=== PATIENT | female | born 1965 | race Hispanic/Latino ===

== ENCOUNTER 2017-06-10 21:18 | Emergency (ER) | payer BC ==
[2017-06-10 22:42] LABS: APPEARANCE,URINE Clear (CLEAR); BILIRUBIN,URINE Negative (NEGATIVE); COLOR,URINE Yellow (YELLOW); GLUCOSE, URINE (UA) Negative (NEGATIVE); KETONES,URINE Trace mg/dL (NEGATIVE); LEUKOCYTE ESTERASE ,URINE Trace (NEGATIVE); NITRATE,URINE Negative (NEGATIVE); OCCULT BLOOD,URINE Negative (NEGATIVE); PH,URINE 5.5 (5.0-8.0); PROTEIN,URINE Negative (NEGATIVE)
[2017-06-10 23:04] LABS: BACTERIA,URINE Few /HPF (None Seen); MUCUS,URINE Moderate LPF (None Seen); RBC,URINE 0-1 /HPF (0-1)
[2017-06-10] MEDS ORDERED: DICYCLOMINE HCL 20 MG TAB ONE (23:16)
[2017-06-10] MEDS ORDERED: KETOROLAC TROMETHAMINE 30MG/ML ONE (23:16)
[2017-06-10] MEDS ORDERED: LACTULOSE 20 GM/30 ML UDCUP ONE (23:39)
[2017-06-11 00:08] LABS: BASOPHILS % (AUTO) 0.6 % (0.0-5.0); EOSINOPHILS % (AUTO) 3.1 % (0.0-8.0); HEMATOCRIT 42.2 % (36-48); LYMPHOCYTES % (AUTO) 35.6 % (21.0-51.0); MEAN CORPUSCULAR HEMOGLOBIN 29.9 pg (27.0-33.0); MEAN CORPUSCULAR HGB CONC 34.9 g/dL (32.0-36.0); MEAN CORPUSCULAR VOLUME 85.7 fL (79-99); MONOCYTES % (AUTO) 8.3 % (3.0-13.0); NEUTROPHILS % (AUTO) 52.4 % (40.0-77.0); PLATELET COUNT (AUTO) 201 K/uL (130-400); RED BLOOD CELL COUNT(AUTO) 4.93 MIL/uL (4.00-5.50); RED CELL DISTRIBUTION WIDTH 13.8 % (11.0-15.5); WHITE BLOOD COUNT (AUTO) 7.3 K/uL (4.8-10.8)
[2017-06-11 00:44] LABS: CREATININE 0.9 mg/dL (0.5-1.5); POTASSIUM 3.4 mmol/L (3.5-5.1)
[2017-06-11 00:48] LABS: ALBUMIN 3.8 g/dL (3.5-5.0); BILIRUBIN,DIRECT 0.1 mg/dL (0.0-0.3); BILIRUBIN,TOTAL 0.6 mg/dL (0.2-1.0)
== END 2017-06-11 01:20 | disposition home or self-care (01) ==
LOC: EDH 21:18
DX: E11.43 Type 2 diabetes mellitus with diabetic autonomic (poly)neuropathy (principal); K31.84 Gastroparesis; K42.9 Umbilical hernia without obstruction or gangrene
CPT/HCPCS: 36415; 74021; 80048; 80076; 81001; 83690; 85025; 96374; 99285; J1885

== ENCOUNTER 2017-06-20 14:36 | Inpatient (IN) | payer BC ==
[~2017-06-20] VITALS: Ht 160 cm; Wt 72.1 kg
[2017-06-20 15:42] LABS: BASOPHILS % (AUTO) 0.4 % (0.0-5.0); EOSINOPHILS % (AUTO) 1.5 % (0.0-8.0); HEMATOCRIT 40.9 % (36-48); LYMPHOCYTES % (AUTO) 29.3 % (21.0-51.0); MEAN CORPUSCULAR HEMOGLOBIN 29.7 pg (27.0-33.0); MEAN CORPUSCULAR HGB CONC 34.6 g/dL (32.0-36.0); MEAN CORPUSCULAR VOLUME 85.8 fL (79-99); MONOCYTES % (AUTO) 8.1 % (3.0-13.0); NEUTROPHILS % (AUTO) 60.7 % (40.0-77.0); PLATELET COUNT (AUTO) 202 K/uL (130-400); RED BLOOD CELL COUNT(AUTO) 4.77 MIL/uL (4.00-5.50); RED CELL DISTRIBUTION WIDTH 13.4 % (11.0-15.5); WHITE BLOOD COUNT (AUTO) 6.7 K/uL (4.8-10.8)
[2017-06-20 15:50] LABS: CREATININE 0.8 mg/dL (0.5-1.5); POTASSIUM 3.6 mmol/L (3.5-5.1)
[2017-06-20 15:54] LABS: ALBUMIN 3.7 g/dL (3.5-5.0); BILIRUBIN,DIRECT 0.2 mg/dL (0.0-0.3); BILIRUBIN,TOTAL 0.6 mg/dL (0.2-1.0); TOTAL PROTEIN, SERUM 7.6 g/dL (6.0-8.3)
[2017-06-20 15:55] LABS: APPEARANCE,URINE Cloudy (CLEAR); BILIRUBIN,URINE Negative (NEGATIVE); COLOR,URINE Yellow (YELLOW); GLUCOSE, URINE (UA) Negative (NEGATIVE); KETONES,URINE Negative (NEGATIVE); LEUKOCYTE ESTERASE ,URINE Small (NEGATIVE); NITRATE,URINE Negative (NEGATIVE); OCCULT BLOOD,URINE Negative (NEGATIVE); PH,URINE 5.5 (5.0-8.0); PROTEIN,URINE Negative (NEGATIVE)
[2017-06-20 16:22] LABS: BACTERIA,URINE Few /HPF (None Seen); RBC,URINE None Seen /HPF (0-1)
[2017-06-20 16:23] LABS: MUCUS,URINE Many LPF (None Seen); SQUAMOUS EPITHELIAL CELL,UR 30-50 /LPF (0-2)
[2017-06-20 17:04] LABS: APPEARANCE,URINE Clear (CLEAR); BILIRUBIN,URINE Negative (NEGATIVE); COLOR,URINE Yellow (YELLOW); GLUCOSE, URINE (UA) Negative (NEGATIVE); KETONES,URINE Negative (NEGATIVE); LEUKOCYTE ESTERASE ,URINE Negative (NEGATIVE); NITRATE,URINE Negative (NEGATIVE); OCCULT BLOOD,URINE Negative (NEGATIVE); PH,URINE 6.5 (5.0-8.0); PROTEIN,URINE Negative (NEGATIVE)
[2017-06-20] MEDS ORDERED: DICYCLOMINE HCL 10 MG/ML 2ML AMP IM ONE (17:31)
[2017-06-20] MEDS ORDERED: KETOROLAC TROMETHAMINE 30MG/ML ONE (17:31)
[2017-06-20] MEDS ORDERED: SODIUM CHLORIDE 0.9% 1000ML 1,000 ML IV ONE (18:22)
[2017-06-20 18:55] VITALS: BP 112/70
[2017-06-20] MEDS ORDERED: KETOROLAC TROMETHAMINE 15MG/ML ONE (22:41)
[2017-06-20] MEDS: KETOROLAC TROMETHAMINE 15MG/ML IV SCH (22:45)
[2017-06-20 23:43] VITALS: BP 110/78
[2017-06-21] VITALS (22 sets, daily range): BP systolic 101–136; BP diastolic 60–83
[2017-06-21] MEDS ORDERED: SODIUM CHLORIDE 0.9% 1000ML 1,000 ML IV SCH ×2 (00:59→10:00)
[2017-06-21] MEDS ORDERED: ONDANSETRON HCL 4 MG/2 ML VIAL IVP PRN (01:00)
[2017-06-21] MEDS ORDERED: GLUCAGON 1MG KIT 1 MG ML IM PRN (01:00)
[2017-06-21] MEDS ORDERED: MORPHINE SULFATE 4 MG/1ML SYG IVP PRN ×2 (01:00→09:00)
[2017-06-21] MEDS ORDERED: DEXTROSE 50%-WATER 50 ML DISP.SYRIN IV PRN (01:00)
[2017-06-21] MEDS ORDERED: ACETAMINOPHEN 325 MG TAB PO PRN ×3 (01:00→09:00)
[2017-06-21] MEDS ORDERED: MORPHINE SULFATE 2 MG/ML 1ML SYG IVP PRN (01:00)
[2017-06-21] MEDS ORDERED: HYDRALAZINE HCL 20 MG/ML VIAL IV PRN ×2 (01:00→09:00)
[2017-06-21] MEDS: KETOROLAC TROMETHAMINE 15MG/ML IV SCH ×2 (01:09→09:39)
[2017-06-21 03:44] LABS: BASOPHILS % (AUTO) 0.5 % (0.0-5.0); EOSINOPHILS % (AUTO) 3.1 % (0.0-8.0); HEMATOCRIT 37.7 % (36-48); LYMPHOCYTES % (AUTO) 35.8 % (21.0-51.0); MEAN CORPUSCULAR HEMOGLOBIN 29.8 pg (27.0-33.0); MEAN CORPUSCULAR HGB CONC 34.9 g/dL (32.0-36.0); MEAN CORPUSCULAR VOLUME 85.5 fL (79-99); MONOCYTES % (AUTO) 9.2 % (3.0-13.0); NEUTROPHILS % (AUTO) 51.4 % (40.0-77.0); NUCLEATED RED BLOOD CELLS 0.1 % (0.0-0.19); PLATELET COUNT (AUTO) 171 K/uL (130-400); RED BLOOD CELL COUNT(AUTO) 4.41 MIL/uL (4.00-5.50); RED CELL DISTRIBUTION WIDTH 13.8 % (11.0-15.5)
[2017-06-21 04:23] LABS: CREATININE 0.7 mg/dL (0.5-1.5); POTASSIUM 3.3 mmol/L (3.5-5.1)
[2017-06-21] MEDS: INSULIN HUMULIN R 100 UNIT/ML 3ML SQ SCH ×4 (06:04→21:00)
[2017-06-21] MEDS ORDERED: NITROGLYCERIN 0.4 MG SL TAB SL PRN (09:00)
[2017-06-21] MEDS ORDERED: MAG HYDROX/AL HYDROX/SIMETH ES 30 ML SUSP UDCUP PO PRN (09:00)
[2017-06-21] MEDS ORDERED: LIDOCAINE PF 2% 5ML ABBOJECT ONE (11:43)
[2017-06-21] MEDS ORDERED: ONDANSETRON HCL 4 MG/2 ML VIAL ONE (11:43)
[2017-06-21] MEDS ORDERED: DEXAMETHASONE SOD PHOSPHATE 10MG/ML 1ML VIAL ONE (11:43)
[2017-06-21] MEDS ORDERED: GLYCOPYRROLATE 0.2 MG/ML 5 ML VIAL ONE (11:43)
[2017-06-21] MEDS ORDERED: NEOSTIGMINE METHYLSULFATE 1MG/ML IV ONE (11:44)
[2017-06-21] MEDS ORDERED: PROPOFOL 10 MG/ML 20ML VIAL IV ONE ×2 (11:44→12:18)
[2017-06-21] MEDS ORDERED: SUCCINYLCHOLINE 200MG/10ML SYR ONE (11:44)
[2017-06-21] MEDS ORDERED: MIDAZOLAM HCL 1 MG/ML 2ML VIAL ONE (11:44)
[2017-06-21] MEDS ORDERED: FENTANYL CITRATE PF 50 MCG/1 ML 2ML VIAL ONE (11:45)
[2017-06-21] MEDS: FAMOTIDINE/PF 20 MG/2 ML VIAL IV SCH ×2 (17:47→21:05)
[2017-06-21] MEDS: PROCALAMINE IV SOLUTION 1,000 ML IV SCH (17:49)
[2017-06-22] VITALS: BP 116/75
[2017-06-22 03:56] LABS: BASOPHILS % (AUTO) 0.2 % (0.0-5.0); EOSINOPHILS % (AUTO) 0.1 % (0.0-8.0); HEMATOCRIT 37.7 % (36-48); MEAN CORPUSCULAR HEMOGLOBIN 30.1 pg (27.0-33.0); MEAN CORPUSCULAR HGB CONC 35.7 g/dL (32.0-36.0); MEAN CORPUSCULAR VOLUME 84.3 fL (79-99); MONOCYTES % (AUTO) 5.4 % (3.0-13.0); NEUTROPHILS % (AUTO) 78.3 % (40.0-77.0); NUCLEATED RED BLOOD CELLS 0.1 % (0.0-0.19); PLATELET COUNT (AUTO) 186 K/uL (130-400); RED BLOOD CELL COUNT(AUTO) 4.48 MIL/uL (4.00-5.50); RED CELL DISTRIBUTION WIDTH 13.6 % (11.0-15.5); WHITE BLOOD COUNT (AUTO) 8.8 K/uL (4.8-10.8)
[2017-06-22 04:00] VITALS: BP 102/69
[2017-06-22 04:21] LABS: BILIRUBIN,TOTAL 0.5 mg/dL (0.2-1.0); CREATININE 0.7 mg/dL (0.5-1.5); MAGNESIUM 1.9 mg/dL (1.80-2.40); PHOSPHORUS 3.8 mg/dL (2.5-4.9); POTASSIUM 3.4 mmol/L (3.5-5.1); TOTAL PROTEIN, SERUM 6.6 g/dL (6.0-8.3)
[2017-06-22] MEDS: INSULIN HUMULIN R 100 UNIT/ML 3ML SQ SCH ×4 (06:16→20:51)
[2017-06-22 08:00] VITALS: BP 108/71
[2017-06-22] MEDS: LIDOCAINE HCL-MPF 1% 2ML VIAL IVP PRN (08:46)
[2017-06-22] MEDS: POTASSIUM CHLORIDE 20MEQ/100ML 100 ML IV PRN (08:47)
[2017-06-22] MEDS: FAMOTIDINE/PF 20 MG/2 ML VIAL IV SCH ×2 (08:47→20:51)
[2017-06-22] MEDS: PROCALAMINE IV SOLUTION 1,000 ML IV SCH ×2 (09:02→23:06)
[2017-06-22 11:00] VITALS: BP 134/85
[2017-06-22 16:00] VITALS: BP 122/60
[2017-06-22] MEDS: POTASSIUM CHLORIDE 20 MEQ ERTAB PO PRN (18:52)
[2017-06-22 20:00] VITALS: BP 128/74
[2017-06-23] VITALS: BP 100/68
[2017-06-23 03:47] LABS: BASOPHILS % (AUTO) 0.6 % (0.0-5.0); EOSINOPHILS % (AUTO) 2.6 % (0.0-8.0); HEMATOCRIT 37.7 % (36-48); LYMPHOCYTES % (AUTO) 37.8 % (21.0-51.0); MEAN CORPUSCULAR HEMOGLOBIN 29.8 pg (27.0-33.0); MEAN CORPUSCULAR HGB CONC 35.2 g/dL (32.0-36.0); MEAN CORPUSCULAR VOLUME 84.8 fL (79-99); PLATELET COUNT (AUTO) 179 K/uL (130-400); RED BLOOD CELL COUNT(AUTO) 4.45 MIL/uL (4.00-5.50); RED CELL DISTRIBUTION WIDTH 14.2 % (11.0-15.5); WHITE BLOOD COUNT (AUTO) 6.6 K/uL (4.8-10.8)
[2017-06-23 03:58] LABS: CREATININE 0.6 mg/dL (0.5-1.5); POTASSIUM 3.6 mmol/L (3.5-5.1)
[2017-06-23 04:00] VITALS: BP 107/69
[2017-06-23] MEDS: INSULIN HUMULIN R 100 UNIT/ML 3ML SQ SCH ×3 (06:25→20:55)
[2017-06-23 08:00] VITALS: BP 123/72
[2017-06-23] MEDS: POTASSIUM CHLORIDE 20 MEQ ERTAB PO PRN ×2 (09:00→15:08)
[2017-06-23] MEDS: ENOXAPARIN SODIUM 40 MG/0.4 ML SYRINGE SQ SCH (09:01)
[2017-06-23] MEDS: FAMOTIDINE/PF 20 MG/2 ML VIAL IV SCH ×2 (09:02→20:54)
[2017-06-23] MEDS: LACTULOSE 20 GM/30 ML UDCUP PO PRN ×2 (09:21→21:00)
[2017-06-23 11:00] VITALS: BP 106/80
[2017-06-23 16:00] VITALS: BP 112/64
[2017-06-23] MEDS: PROCALAMINE IV SOLUTION 1,000 ML IV SCH (17:00)
[2017-06-23 20:00] VITALS: BP 122/80
[2017-06-24] VITALS (7 sets, daily range): BP systolic 100–123; BP diastolic 71–83
[2017-06-24] MEDS: INSULIN HUMULIN R 100 UNIT/ML 3ML SQ SCH ×4 (06:39→21:00)
[2017-06-24] MEDS ORDERED: BISACODYL 10 MG SUPP.RECT RC ONE (09:19)
[2017-06-24] MEDS ORDERED: BISACODYL 10 MG SUPP.RECT RC SCH (09:28)
[2017-06-24] MEDS: FAMOTIDINE/PF 20 MG/2 ML VIAL IV SCH ×2 (09:35→21:34)
[2017-06-24] MEDS: ENOXAPARIN SODIUM 40 MG/0.4 ML SYRINGE SQ SCH (09:37)
[2017-06-24] MEDS ORDERED: METF500T6 PO (20:46)
[2017-06-24] MEDS ORDERED: OMEP40CA37 PO (20:46)
[2017-06-25 02:45] VITALS: BP 97/61
[2017-06-25 04:11] LABS: MEAN CORPUSCULAR HEMOGLOBIN 30.5 pg (27.0-33.0); MEAN CORPUSCULAR HGB CONC 36.1 g/dL (32.0-36.0); MEAN CORPUSCULAR VOLUME 84.6 fL (79-99); NUCLEATED RED BLOOD CELLS 0.1 % (0.0-0.19); PLATELET COUNT (AUTO) 194 K/uL (130-400); RED BLOOD CELL COUNT(AUTO) 4.73 MIL/uL (4.00-5.50); RED CELL DISTRIBUTION WIDTH 13.5 % (11.0-15.5); WHITE BLOOD COUNT (AUTO) 6.4 K/uL (4.8-10.8)
[2017-06-25 04:12] LABS: CREATININE 0.7 mg/dL (0.5-1.5)
[2017-06-25] MEDS: INSULIN HUMULIN R 100 UNIT/ML 3ML SQ SCH ×4 (07:10→21:00)
[2017-06-25 07:50] VITALS: BP 83/59
[2017-06-25] MEDS: FAMOTIDINE/PF 20 MG/2 ML VIAL IV SCH ×2 (10:12→21:34)
[2017-06-25] MEDS: ENOXAPARIN SODIUM 40 MG/0.4 ML SYRINGE SQ SCH (10:14)
[2017-06-25 11:45] VITALS: BP 99/50
[2017-06-25 16:12] VITALS: BP 105/54
[2017-06-25] MEDS: LACTULOSE 20 GM/30 ML UDCUP PO PRN (18:20)
[2017-06-25 19:43] VITALS: BP 101/54
[2017-06-25 23:23] VITALS: BP 120/72
[2017-06-26 03:14] VITALS: BP 97/61
[2017-06-26] MEDS: INSULIN HUMULIN R 100 UNIT/ML 3ML SQ SCH ×4 (07:30→21:00)
[2017-06-26 08:02] VITALS: BP 90/55
[2017-06-26] MEDS: FAMOTIDINE/PF 20 MG/2 ML VIAL IV SCH ×2 (08:41→21:35)
[2017-06-26] MEDS: ENOXAPARIN SODIUM 40 MG/0.4 ML SYRINGE SQ SCH (08:43)
[2017-06-26 11:45] VITALS: BP 104/72
[2017-06-26 15:54] VITALS: BP 111/82
[2017-06-26] MEDS ORDERED: BISACODYL 10 MG SUPP.RECT RC ONE ×2 (16:15→21:32)
[2017-06-26 21:20] VITALS: BP 110/78
[2017-06-26 23:17] VITALS: BP 110/71
[2017-06-27] VITALS (25 sets, daily range): BP systolic 105–151; BP diastolic 68–94
[2017-06-27 05:46] LABS: HEMATOCRIT 41.6 % (36-48); MEAN CORPUSCULAR HEMOGLOBIN 29.9 pg (27.0-33.0); MEAN CORPUSCULAR HGB CONC 35.1 g/dL (32.0-36.0); MEAN CORPUSCULAR VOLUME 85.1 fL (79-99); PLATELET COUNT (AUTO) 198 K/uL (130-400); RED BLOOD CELL COUNT(AUTO) 4.88 MIL/uL (4.00-5.50); RED CELL DISTRIBUTION WIDTH 13.8 % (11.0-15.5); WHITE BLOOD COUNT (AUTO) 5.3 K/uL (4.8-10.8)
[2017-06-27 06:00] LABS: CREATININE 0.7 mg/dL (0.5-1.5); POTASSIUM 3.2 mmol/L (3.5-5.1)
[2017-06-27] MEDS: LIDOCAINE HCL-MPF 1% 2ML VIAL IVP PRN (06:20)
[2017-06-27] MEDS: POTASSIUM CHLORIDE 20MEQ/100ML 100 ML IV PRN ×2 (06:20→09:56)
[2017-06-27] MEDS: INSULIN HUMULIN R 100 UNIT/ML 3ML SQ SCH ×3 (07:24→18:43)
[2017-06-27] MEDS: ENOXAPARIN SODIUM 40 MG/0.4 ML SYRINGE SQ SCH (09:00)
[2017-06-27] MEDS: FAMOTIDINE/PF 20 MG/2 ML VIAL IV SCH ×2 (09:52→21:03)
[2017-06-27] MEDS ORDERED: PROPOFOL 10 MG/ML 20ML VIAL IV ONE (11:01)
[2017-06-27] MEDS ORDERED: FENTANYL CITRATE PF 50 MCG/1 ML 5ML AMP IV ONE ×3 (11:01→12:18)
[2017-06-27] MEDS ORDERED: MIDAZOLAM HCL 1 MG/ML 2ML VIAL ONE (11:04)
[2017-06-27] MEDS ORDERED: CEFOXITIN SODIUM 1 GM VIAL ONE (11:04)
[2017-06-27] MEDS ORDERED: ALBUMIN (HUMAN) 5% 250 ML IV ONE (11:52)
[2017-06-27] MEDS ORDERED: SUCCINYLCHOLINE 200MG/10ML SYR ONE (12:18)
[2017-06-27] MEDS ORDERED: ROCURONIUM BROMIDE 10MG/1ML 5ML VL ONE (12:18)
[2017-06-27] MEDS ORDERED: ONDANSETRON HCL 4 MG/2 ML VIAL ONE ×2 (12:18→14:59)
[2017-06-27] MEDS ORDERED: DEXAMETHASONE SOD PHOSPHATE 10MG/ML 1ML VIAL ONE (12:18)
[2017-06-27] MEDS ORDERED: MEPERIDINE-PF 50 MG/ML SYG ONE (13:56)
[2017-06-27] MEDS ORDERED: METHYLENE BLUE 10 MG/ML AMP IJ ONE (14:00)
[2017-06-27] MEDS ORDERED: FENTANYL CITRATE PF 50 MCG/1 ML 2ML VIAL ONE ×3 (14:43→15:17)
[2017-06-27] MEDS: SODIUM CHLORIDE 0.9% 1000ML 1,000 ML IV SCH (16:19)
[2017-06-27] MEDS ORDERED: MORPHINE SULFATE 2 MG/ML 1ML SYG ONE ×2 (16:53)
[2017-06-27] MEDS: MORPHINE-NS 50 MG/50 ML 50 ML IV PRN (17:28)
[2017-06-27] MEDS ORDERED: CEFOXITIN 1GM+NS 100ML 100 ML IV SCH (21:00)
[2017-06-27] MEDS: CEFOXITIN SODIUM 1 GM VIAL IVP SCH (21:03)
[2017-06-27] MEDS: ONDANSETRON HCL 4 MG/2 ML VIAL IV PRN (21:16)
[2017-06-28] MEDS: INSULIN HUMULIN R 100 UNIT/ML 3ML SQ SCH ×5 (00:18→21:00)
[2017-06-28] MEDS: KETOROLAC TROMETHAMINE 15MG/ML IV PRN ×3 (00:28→20:51)
[2017-06-28] MEDS: CEFOXITIN SODIUM 1 GM VIAL IVP SCH (03:20)
[2017-06-28 03:21] VITALS: BP 120/72
[2017-06-28 04:16] LABS: BASOPHILS % (AUTO) 0.1 % (0.0-5.0); HEMATOCRIT 42.4 % (36-48); LYMPHOCYTES % (AUTO) 8.9 % (21.0-51.0); MEAN CORPUSCULAR HEMOGLOBIN 29.9 pg (27.0-33.0); MEAN CORPUSCULAR HGB CONC 35.1 g/dL (32.0-36.0); MONOCYTES % (AUTO) 8.1 % (3.0-13.0); NEUTROPHILS % (AUTO) 82.9 % (40.0-77.0); PLATELET COUNT (AUTO) 228 K/uL (130-400); RED BLOOD CELL COUNT(AUTO) 4.99 MIL/uL (4.00-5.50); RED CELL DISTRIBUTION WIDTH 13.9 % (11.0-15.5)
[2017-06-28] MEDS: SODIUM CHLORIDE 0.9% 1000ML 1,000 ML IV SCH ×2 (04:23→18:42)
[2017-06-28 04:26] LABS: CREATININE 0.8 mg/dL (0.5-1.5)
[2017-06-28 07:52] VITALS: BP 112/74
[2017-06-28] MEDS: ONDANSETRON HCL 4 MG/2 ML VIAL IV PRN ×2 (09:53→15:44)
[2017-06-28] MEDS: ENOXAPARIN SODIUM 40 MG/0.4 ML SYRINGE SQ SCH (09:55)
[2017-06-28 11:15] VITALS: BP 113/76
[2017-06-28] MEDS: FAMOTIDINE/PF 20 MG/2 ML VIAL IV SCH ×2 (12:20→20:50)
[2017-06-28 15:30] VITALS: BP 138/91
[2017-06-28] MEDS: MORPHINE-NS 50 MG/50 ML 50 ML IV PRN (18:43)
[2017-06-28 19:27] VITALS: BP 122/86
[2017-06-28 23:20] VITALS: BP 106/65
[2017-06-29] MEDS: INSULIN HUMULIN R 100 UNIT/ML 3ML SQ SCH ×3 (00:15→16:30)
[2017-06-29] MEDS: SODIUM CHLORIDE 0.9% 1000ML 1,000 ML IV SCH ×2 (01:07→20:03)
[2017-06-29 04:50] VITALS: BP 119/74
[2017-06-29 05:14] LABS: BASOPHILS % (AUTO) 0.2 % (0.0-5.0); EOSINOPHILS % (AUTO) 0.5 % (0.0-8.0); HEMATOCRIT 34.5 % (36-48); LYMPHOCYTES % (AUTO) 14.1 % (21.0-51.0); MEAN CORPUSCULAR HEMOGLOBIN 30.5 pg (27.0-33.0); MEAN CORPUSCULAR VOLUME 84.7 fL (79-99); MONOCYTES % (AUTO) 7.2 % (3.0-13.0); PLATELET COUNT (AUTO) 190 K/uL (130-400); RED BLOOD CELL COUNT(AUTO) 4.07 MIL/uL (4.00-5.50); RED CELL DISTRIBUTION WIDTH 13.8 % (11.0-15.5); WHITE BLOOD COUNT (AUTO) 9.5 K/uL (4.8-10.8)
[2017-06-29 05:32] LABS: CREATININE 0.5 mg/dL (0.5-1.5); POTASSIUM 3.3 mmol/L (3.5-5.1)
[2017-06-29 07:47] VITALS: BP 138/86
[2017-06-29] MEDS: FAMOTIDINE/PF 20 MG/2 ML VIAL IV SCH ×2 (08:21→21:47)
[2017-06-29] MEDS: POTASSIUM CHLORIDE 20MEQ/100ML 100 ML IV PRN ×2 (08:22→13:43)
[2017-06-29] MEDS: ENOXAPARIN SODIUM 40 MG/0.4 ML SYRINGE SQ SCH (08:35)
[2017-06-29] MEDS: LIDOCAINE HCL-MPF 1% 2ML VIAL IVP PRN (08:41)
[2017-06-29] MEDS ORDERED: PHENOL 177 ML BOTTLE PO PRN (10:45)
[2017-06-29 11:30] VITALS: BP 132/77
[2017-06-29 15:21] VITALS: BP 137/78
[2017-06-29 20:16] VITALS: BP 128/71
[2017-06-30] VITALS (7 sets, daily range): BP systolic 99–135; BP diastolic 53–82
[2017-06-30] MEDS: KETOROLAC TROMETHAMINE 15MG/ML IV PRN (00:24)
[2017-06-30 04:40] LABS: BASOPHILS % (AUTO) 0.3 % (0.0-5.0); EOSINOPHILS % (AUTO) 1.7 % (0.0-8.0); HEMATOCRIT 31.9 % (36-48); LYMPHOCYTES % (AUTO) 19.9 % (21.0-51.0); MEAN CORPUSCULAR HEMOGLOBIN 30.3 pg (27.0-33.0); MEAN CORPUSCULAR HGB CONC 35.8 g/dL (32.0-36.0); MEAN CORPUSCULAR VOLUME 84.5 fL (79-99); MONOCYTES % (AUTO) 9.1 % (3.0-13.0); PLATELET COUNT (AUTO) 180 K/uL (130-400); RED BLOOD CELL COUNT(AUTO) 3.78 MIL/uL (4.00-5.50); RED CELL DISTRIBUTION WIDTH 13.4 % (11.0-15.5); WHITE BLOOD COUNT (AUTO) 6.6 K/uL (4.8-10.8)
[2017-06-30 04:52] LABS: CREATININE 0.6 mg/dL (0.5-1.5); POTASSIUM 3.1 mmol/L (3.5-5.1)
[2017-06-30] MEDS: POTASSIUM CHLORIDE 20MEQ/100ML 100 ML IV PRN ×2 (05:14→09:08)
[2017-06-30] MEDS: LIDOCAINE HCL-MPF 1% 2ML VIAL IVP PRN ×2 (05:53→09:09)
[2017-06-30] MEDS: INSULIN HUMULIN R 100 UNIT/ML 3ML SQ SCH ×2 (07:30→21:00)
[2017-06-30] MEDS: ENOXAPARIN SODIUM 40 MG/0.4 ML SYRINGE SQ SCH (08:54)
[2017-06-30] MEDS: FAMOTIDINE/PF 20 MG/2 ML VIAL IV SCH ×2 (08:55→20:45)
[2017-06-30] MEDS: SODIUM CHLORIDE 0.9% 1000ML 1,000 ML IV SCH ×2 (12:36→23:54)
[2017-07-01 03:01] VITALS: BP 135/82
[2017-07-01 06:43] LABS: CREATININE 0.5 mg/dL (0.5-1.5); POTASSIUM 3.3 mmol/L (3.5-5.1)
[2017-07-01] MEDS: INSULIN HUMULIN R 100 UNIT/ML 3ML SQ SCH ×4 (07:30→21:00)
[2017-07-01 07:49] VITALS: BP 128/79
[2017-07-01] MEDS: POTASSIUM CHLORIDE 10% ELIXIR 20 MEQ/15 ML UDCUP PO PRN ×3 (08:05→12:22)
[2017-07-01] MEDS: ENOXAPARIN SODIUM 40 MG/0.4 ML SYRINGE SQ SCH (10:04)
[2017-07-01] MEDS: FAMOTIDINE/PF 20 MG/2 ML VIAL IV SCH ×2 (10:04→21:30)
[2017-07-01] MEDS ORDERED: MORPHINE SULFATE 4 MG/1ML SYG IVP PRN (11:00)
[2017-07-01] MEDS ORDERED: MORPHINE SULFATE 2 MG/ML 1ML SYG IVP PRN (11:00)
[2017-07-01 11:36] VITALS: BP 130/89
[2017-07-01] MEDS: METOCLOPRAMIDE 10 MG/2 ML VIAL IVP SCH ×2 (12:21→17:56)
[2017-07-01] MEDS: KETOROLAC TROMETHAMINE 15MG/ML IV PRN ×2 (12:22→18:54)
[2017-07-01] MEDS: SIMETHICONE 80 MG TAB.CHEW PO SCH ×3 (13:24→21:30)
[2017-07-01 15:37] VITALS: BP 121/81
[2017-07-01 19:49] VITALS: BP 120/76
[2017-07-01] MEDS: GUAIFENESIN-DM 200/20 MG 10 ML PO PRN (21:47)
[2017-07-01 23:17] VITALS: BP 126/60
[2017-07-01] MEDS: TRAMADOL HCL 50 MG TABLET PO PRN (23:55)
[2017-07-02 03:13] VITALS: BP 111/78
[2017-07-02] MEDS: GUAIFENESIN-DM 200/20 MG 10 ML PO PRN (05:01)
[2017-07-02] MEDS: TRAMADOL HCL 50 MG TABLET PO PRN (05:11)
[2017-07-02 06:05] LABS: CREATININE 0.5 mg/dL (0.5-1.5); POTASSIUM 3.6 mmol/L (3.5-5.1)
[2017-07-02] MEDS: POTASSIUM CHLORIDE 10% ELIXIR 20 MEQ/15 ML UDCUP PO PRN (06:37)
[2017-07-02] MEDS: POTASSIUM CHLORIDE 20 MEQ ERTAB PO PRN ×2 (06:47→09:23)
[2017-07-02] MEDS: KETOROLAC TROMETHAMINE 15MG/ML IV PRN ×2 (06:49→18:13)
[2017-07-02] MEDS: INSULIN HUMULIN R 100 UNIT/ML 3ML SQ SCH ×4 (07:30→21:00)
[2017-07-02 07:51] VITALS: BP 121/81
[2017-07-02] MEDS: METOCLOPRAMIDE 10 MG/2 ML VIAL IVP SCH ×3 (08:00→17:19)
[2017-07-02] MEDS: SIMETHICONE 80 MG TAB.CHEW PO SCH ×4 (09:12→20:36)
[2017-07-02] MEDS: DOCUSATE SODIUM 100 MG CAP PO SCH ×2 (09:12→20:36)
[2017-07-02] MEDS: FAMOTIDINE/PF 20 MG/2 ML VIAL IV SCH ×2 (09:13→20:36)
[2017-07-02] MEDS: ENOXAPARIN SODIUM 40 MG/0.4 ML SYRINGE SQ SCH (09:13)
[2017-07-02] MEDS ORDERED: HYDROCODONE/ACETAMINOPHEN 5/325 MG TAB PO PRN (10:45)
[2017-07-02 11:21] VITALS: BP 116/85
[2017-07-02 15:37] VITALS: BP 117/74
[2017-07-02] MEDS: HYDROCODONE/ACETAMINOPHEN 5/325 MG TAB PO PRN (15:54)
[2017-07-02 19:19] VITALS: BP 99/66
[2017-07-02 23:12] VITALS: BP 100/70
[2017-07-03 03:24] VITALS: BP 114/76
[2017-07-03] MEDS: HYDROCODONE/ACETAMINOPHEN 5/325 MG TAB PO PRN (03:24)
[2017-07-03] MEDS: POTASSIUM CHLORIDE 20 MEQ ERTAB PO PRN ×3 (06:17→13:56)
[2017-07-03] MEDS: INSULIN HUMULIN R 100 UNIT/ML 3ML SQ SCH ×4 (06:28→21:00)
[2017-07-03] MEDS: METOCLOPRAMIDE 10 MG/2 ML VIAL IVP SCH (08:00)
[2017-07-03] MEDS: TRAMADOL HCL 50 MG TABLET PO PRN (08:00)
[2017-07-03 08:01] VITALS: BP 120/75
[2017-07-03] MEDS ORDERED: BISACODYL 10 MG SUPP.RECT RC SCH (09:15)
[2017-07-03] MEDS ORDERED: IBUPROFEN 800 MG TAB PO PRN (09:15)
[2017-07-03] MEDS ORDERED: BISACODYL 10 MG SUPP.RECT RC ONE (09:19)
[2017-07-03] MEDS: SIMETHICONE 80 MG TAB.CHEW PO SCH ×4 (09:33→20:39)
[2017-07-03] MEDS: DOCUSATE SODIUM 100 MG CAP PO SCH ×2 (09:33→20:38)
[2017-07-03] MEDS: FAMOTIDINE/PF 20 MG/2 ML VIAL IV SCH ×2 (09:35→20:39)
[2017-07-03] MEDS: ENOXAPARIN SODIUM 40 MG/0.4 ML SYRINGE SQ SCH (09:37)
[2017-07-03] MEDS ORDERED: IBUPROFEN 800 MG TAB PO SCH (11:30)
[2017-07-03 11:48] VITALS: BP 103/68
[2017-07-03 16:26] VITALS: BP 112/76
[2017-07-03] MEDS: ONDANSETRON HCL 4 MG/2 ML VIAL IV PRN (18:51)
[2017-07-03 19:45] VITALS: BP 119/83
[2017-07-03 23:19] VITALS: BP 117/64
[2017-07-04 03:11] VITALS: BP 120/79
[2017-07-04] MEDS: TRAMADOL HCL 50 MG TABLET PO PRN (03:31)
[2017-07-04 06:18] LABS: CREATININE 0.5 mg/dL (0.5-1.5); POTASSIUM 3.6 mmol/L (3.5-5.1)
[2017-07-04] MEDS: INSULIN HUMULIN R 100 UNIT/ML 3ML SQ SCH (06:21)
[2017-07-04] MEDS: POTASSIUM CHLORIDE 20 MEQ ERTAB PO PRN (06:37)
[2017-07-04 07:54] VITALS: BP 117/76
[2017-07-04] MEDS: DOCUSATE SODIUM 100 MG CAP PO SCH (09:09)
[2017-07-04] MEDS: SIMETHICONE 80 MG TAB.CHEW PO SCH (09:09)
[2017-07-04] MEDS: FAMOTIDINE/PF 20 MG/2 ML VIAL IV SCH (09:18)
[2017-07-04] MEDS: ENOXAPARIN SODIUM 40 MG/0.4 ML SYRINGE SQ SCH (09:18)
[2017-07-04 12:02] VITALS: BP 118/74
== END 2017-07-04 15:00 | disposition home or self-care (01) | DRG 326 ==
LOC: EDH 14:36 → EDHIP 17:43 → 3AH 19:12 → WSH 06-24 13:30
PROVIDERS: ADMIT Internal Medicine; ATTEND Internal Medicine
PROC: 0DB68ZX Excision of Stomach, Via Natural or Artificial Opening Endoscopic, Diagnostic (ICD-10-PCS; principal; 2017-06-21)
PROC: 0DB60ZZ Excision of Stomach, Open Approach (ICD-10-PCS; 2017-06-27 11:25)
PROC: 0D160ZA Bypass Stomach to Jejunum, Open Approach (ICD-10-PCS; 2017-06-27 11:25)
DX: C16.9 Malignant neoplasm of stomach, unspecified (principal); E43 Unspecified severe protein-calorie malnutrition; K31.1 Adult hypertrophic pyloric stenosis; E11.9 Type 2 diabetes mellitus without complications; K42.9 Umbilical hernia without obstruction or gangrene; K43.9 Ventral hernia without obstruction or gangrene; R10.9 Unspecified abdominal pain; Z72.0 Tobacco use; D64.9 Anemia, unspecified; E11.65 Type 2 diabetes mellitus with hyperglycemia; E86.0 Dehydration; E87.6 Hypokalemia; G54.0 Brachial plexus disorders; I10 Essential (primary) hypertension; K59.00 Constipation, unspecified; Z80.0 Family history of malignant neoplasm of digestive organs; Z80.3 Family history of malignant neoplasm of breast; Z85.028 Personal history of other malignant neoplasm of stomach
CPT/HCPCS: 36415; 74018; 74176; 80048; 80053; 80076; 81001; 81003; 82948; 83036; 83690; 83735; 84100; 84132; 85025; 85027; 86850; 86900; 86901; 86922; 88302; 88305; 88309; 88312; A4218; A4344; J0330; J0500; J0694; J1100; J1650; J1815; J1885; J2001; J2175; J2250; J2270; J2405; J2704; J2710; J2765; J3010; J3480; J3490; J7030; P9045; Q9968

== ENCOUNTER 2017-07-24 12:00 | Day surgery (SDC) | payer BC ==
[2017-07-22 10:14] VITALS: BP 109/61
[2017-07-22 10:16] LABS: BASOPHILS % (AUTO) 0.5 % (0.0-5.0); HEMATOCRIT 38.3 % (36-48); LYMPHOCYTES % (AUTO) 34.3 % (21.0-51.0); MEAN CORPUSCULAR HEMOGLOBIN 28.8 pg (27.0-33.0); MEAN CORPUSCULAR HGB CONC 34.2 g/dL (32.0-36.0); MONOCYTES % (AUTO) 7.8 % (3.0-13.0); NEUTROPHILS % (AUTO) 54.4 % (40.0-77.0); PLATELET COUNT (AUTO) 408 K/uL (130-400); RED BLOOD CELL COUNT(AUTO) 4.56 MIL/uL (4.00-5.50); RED CELL DISTRIBUTION WIDTH 13.9 % (11.0-15.5); WHITE BLOOD COUNT (AUTO) 6.4 K/uL (4.8-10.8)
[2017-07-22 10:24] LABS: CREATININE 0.7 mg/dL (0.5-1.5); POTASSIUM 3.7 mmol/L (3.5-5.1)
[2017-07-24] VITALS (14 sets, daily range): BP systolic 64–131; BP diastolic 20–87
[~2017-07-24] VITALS: Ht 160 cm; Wt 66.8 kg
[~2017-07-24 12:00] MED LIST: METF500T6 PO; OMEP40CA37 PO; SODIUM CHLORIDE 0.9% 1000ML 1,000 ML IV SCH
[2017-07-24] MEDS: CEFAZOLIN SODIUM 1 GM VIAL IVP SCH ×2 (13:00→15:03)
[2017-07-24] MEDS ORDERED: CEFAZOLIN SODIUM 1 GM VIAL ONE (13:06)
[2017-07-24] MEDS ORDERED: ONDANSETRON HCL 4 MG/2 ML VIAL ONE ×3 (13:32→15:52)
[2017-07-24] MEDS ORDERED: GLYCOPYRROLATE 0.2 MG/ML 5 ML VIAL ONE (13:32)
[2017-07-24] MEDS ORDERED: DEXAMETHASONE SOD PHOSPHATE 10MG/ML 1ML VIAL ONE ×2 (13:32→13:56)
[2017-07-24] MEDS ORDERED: SUCCINYLCHOLINE 200MG/10ML SYR ONE (13:33)
[2017-07-24] MEDS ORDERED: MIDAZOLAM HCL 1 MG/ML 2ML VIAL ONE (13:33)
[2017-07-24] MEDS ORDERED: PROPOFOL 10 MG/ML 20ML VIAL IV ONE (13:33)
[2017-07-24] MEDS ORDERED: LIDOCAINE PF 2% 5ML ABBOJECT ONE (13:33)
[2017-07-24] MEDS ORDERED: FENTANYL CITRATE PF 50 MCG/1 ML 2ML VIAL ONE ×2 (13:34→15:13)
[2017-07-24] MEDS ORDERED: MEPERIDINE-PF 50 MG/ML SYG ONE (13:43)
[2017-07-24] MEDS ORDERED: HEPARIN SODIUM 1000UNIT/ML 10ML VIAL ONE (13:46)
[2017-07-24] MEDS ORDERED: OCTYL 2-CYANOACRYLATE 1 EACH TP ONE ×2 (14:03→15:50)
[2017-07-24] MEDS ORDERED: BUPIVACAINE/PF 0.25% 30ML VIAL IJ ONE (15:08)
[2017-07-24] MEDS ORDERED: DEXAMETHASONE SOD PHOSPHATE 4 MG/ML 1ML VIAL ONE (15:52)
[2017-07-24] MEDS ORDERED: KETOROLAC TROMETHAMINE 30MG/ML ONE (16:48)
[2017-07-24] MEDS ORDERED: TRAM50TA4 PO (18:08)
== END 2017-07-24 18:24 | disposition home or self-care (01) ==
LOC: DAH 12:00
PROVIDERS: ATTEND Student in an Organized Health Care Education/Training Program
DX: C16.2 Malignant neoplasm of body of stomach (principal); E11.9 Type 2 diabetes mellitus without complications; Z83.3 Family history of diabetes mellitus; Z82.49 Family history of ischemic heart disease and other diseases of the circulatory system; Z91.013 Allergy to seafood; Z79.84 Long term (current) use of oral hypoglycemic drugs; Z79.899 Other long term (current) drug therapy; Z85.09 Personal history of malignant neoplasm of other digestive organs; Z90.3 Acquired absence of stomach [part of]; Z93.1 Gastrostomy status; D64.9 Anemia, unspecified
CPT/HCPCS: 36415; 36561; 71045; 76000; 80048; 82948 ×2; 84702; 84703; 85025; 96374; A4218; A4606; C1788; J0330; J0690; J1100 ×3; J1644; J1885; J2001; J2175; J2250; J2405 ×3; J2704; J3010 ×2; J3490 ×2; J7030 ×2

== ENCOUNTER 2018-11-15 20:35 | Emergency (ER) | payer BC ==
[~2018-11-15 20:35] MED LIST changes: +CEFD300C3 PO; +FURO20TA4 PO; +METF-444 PO; -METF500T6 PO; +POTA20TA12 PO; -SODIUM CHLORIDE 0.9% 1000ML 1,000 ML IV SCH; +TRAM50TA4 PO
[2018-11-15] MEDS ORDERED: TETANUS/DIPHTHERIA TOXOID [ADULT] 0.5 ML VIAL IM ONE (21:32)
== END 2018-11-15 21:44 | disposition home or self-care (01) ==
LOC: EDH 20:35
DX: S00.511A Abrasion of lip, initial encounter (principal); S80.211A Abrasion, right knee, initial encounter; E11.9 Type 2 diabetes mellitus without complications; C16.9 Malignant neoplasm of stomach, unspecified; W18.39XA Other fall on same level, initial encounter; Y93.01 Activity, walking, marching and hiking; Y92.89 Other specified places as the place of occurrence of the external cause; Y99.8 Other external cause status
CPT/HCPCS: 90471; 90714

== ENCOUNTER 2018-11-19 15:54 | Emergency (ER) | payer BC | END 2018-11-19 17:02 | disposition home or self-care (01) | LOC: EDH 15:54 | DX: R18.8 Other ascites (principal); E11.9 Type 2 diabetes mellitus without complications; Z85.00 Personal history of malignant neoplasm of unspecified digestive organ | CPT/HCPCS: 99281 ==

== ENCOUNTER 2018-11-20 09:22 | Emergency (ER) | payer BC ==
[2018-11-20 10:39] LABS: BASOPHILS % (AUTO) 0.6 % (0.0-5.0); EOSINOPHILS % (AUTO) 0.6 % (0.0-8.0); HEMATOCRIT 25.9 % (36-48); LYMPHOCYTES % (AUTO) 8.9 % (21.0-51.0); MEAN CORPUSCULAR HEMOGLOBIN 25.7 pg (27.0-33.0); MEAN CORPUSCULAR HGB CONC 33.4 g/dL (32.0-36.0); MEAN CORPUSCULAR VOLUME 76.8 fL (79-99); MONOCYTES % (AUTO) 5.5 % (3.0-13.0); NEUTROPHILS % (AUTO) 84.4 % (40.0-77.0); PLATELET COUNT (AUTO) 167 K/uL (130-400); RED BLOOD CELL COUNT(AUTO) 3.37 MIL/uL (4.00-5.50); RED CELL DISTRIBUTION WIDTH 21.2 % (11.0-15.5); WHITE BLOOD COUNT (AUTO) 4.5 K/uL (4.8-10.8)
[2018-11-20 10:49] LABS: INR 1.12 (0.85-1.15); PARTIAL THROMBOPLASTIN TIME 38.1 SEC (26.3-35.5); PROTHROMBIN TIME 11.7 SEC (9.6-11.6)
[2018-11-20 10:52] LABS: ALBUMIN 1.9 g/dL (3.5-5.0); BILIRUBIN,TOTAL 0.5 mg/dL (0.2-1.0); CREATININE 0.9 mg/dL (0.5-1.5); TOTAL PROTEIN, SERUM 6.2 g/dL (6.0-8.3)
[2018-11-20 10:53] LABS: POTASSIUM 2.4 mmol/L (3.5-5.1)
[2018-11-20] MEDS ORDERED: POTASSIUM BICARB/CIT AC 25 MEQ TABLET.EFF ONE (10:56)
[2018-11-20 11:42] LABS: APPEARANCE,URINE CLOUDY (CLEAR); BILIRUBIN,URINE MODERATE (NEGATIVE); COLOR,URINE YELLOW (YELLOW); GLUCOSE, URINE (UA) NEGATIVE (NEGATIVE); KETONES,URINE NEGATIVE (NEGATIVE); LEUKOCYTE ESTERASE ,URINE NEGATIVE (NEGATIVE); NITRATE,URINE NEGATIVE (NEGATIVE); OCCULT BLOOD,URINE LARGE (NEGATIVE); PH,URINE 5.5 (5.0-8.0); PROTEIN,URINE 30 mg/dL (NEGATIVE)
--- NOTE | 2018-11-20 11:45 | NUR ---
U/S GD PARACENTESIS PROCEDURE PERFORMED BY DR BUCKNER. PUNCTURE SITE RIGHT LOWER QUADRANT AND PATIENT TOLERATED PROCEDURE WELL. TOTAL REMOVED 5.2 LITERS OF CLOUDY YELLOW ASCITES FLUID. END OF PROCEDURE AT 1215. CATHETER REMOVED AND DRESSING APPLIED. NO BLEEDING NOTED. REPORT GIVEN TO [facility] AND PATIENT TRANSPORTED TO ED VIA STRETCHER @1230. STABLE, AAO X3 WITH NO C/O PAIN. SPECIMEN SENT TO LAB.
[2018-11-20 11:50] LABS: BACTERIA,URINE Moderate /HPF (None Seen); RBC,URINE 26-50 /HPF (0-1)
[2018-11-20] MEDS ORDERED: ALBUMIN (HUMAN) 25% 100 ML IV ONE ×2 (12:15→12:47)
[2018-11-20 13:26] LABS: APPEARANCE BODY FLUID CLEAR (CLEAR); COLOR,BODY FLUID YELLOW (LT YELLOW); SPECIMENTYPE,BODY FLUID ASCITES; TOTAL VOLUME,BODY FLUID 5500 mL
[2018-11-20 13:27] LABS: BODY FLUID RBC 61 /cu. mm.; BODY FLUID WBC 89 /cu. mm.
[2018-11-20 13:33] LABS: BF BASOPHIL 1 %; BF LYMPHOCYTE 8 %; BF MESOTHELIAL 76 %
== END 2018-11-20 14:11 | disposition home or self-care (01) ==
LOC: EDH 09:22
DX: R18.8 Other ascites (principal); E11.9 Type 2 diabetes mellitus without complications; Z85.00 Personal history of malignant neoplasm of unspecified digestive organ
CPT/HCPCS: 36415; 49083; 80053; 81001; 85025; 85610; 85730; 87071; 87205; 89051; 96365; 99285; A4215; P9046

== ENCOUNTER 2018-12-17 01:02 | Emergency (ER) | payer BC ==
[~2018-12-17 01:02] MED LIST changes: -CEFD300C3 PO; +LEVO500T89 PO; -METF-444 PO; +ONDA8TAB12 PO; -POTA20TA12 PO; -TRAM50TA4 PO
[2018-12-17] MEDS ORDERED: METOCLOPRAMIDE 10 MG/2 ML VIAL ONE (02:13)
[2018-12-17] MEDS ORDERED: ONDANSETRON HCL 4 MG/2 ML VIAL ONE (02:14)
[2018-12-17] MEDS ORDERED: FAMOTIDINE/PF 20 MG/2 ML VIAL IV ONE (02:14)
[2018-12-17] MEDS ORDERED: HYDROMORPHONE 1 MG/1 ML AMP ONE (02:14)
[2018-12-17] MEDS ORDERED: SODIUM CHLORIDE 0.9% 500ML 500 ML IV ONE (02:15)
[2018-12-17] MEDS ORDERED: SCOPOLAMINE HYDROBROMIDE 1 EACH ADH..PATCH TD ONE (03:17)
[2018-12-17] MEDS ORDERED: HEPARIN SODIUM/PF 100UNIT/ML 5ML SYRINGE IV ONE (04:04)
== END 2018-12-17 04:20 | disposition home or self-care (01) ==
LOC: EDH 01:02
DX: R11.2 Nausea with vomiting, unspecified (principal); R06.00 Dyspnea, unspecified; G89.29 Other chronic pain
CPT/HCPCS: 96361; 96365; 96375; 99284; J1170; J1642; J2405; J2765; J3490; J7040; 96374